=== PATIENT | female | born 1990 | race Caucasian/White ===

== ENCOUNTER 2025-02-12 19:16 | Emergency (ER) | payer MEDICAID, SELFPAY ==
[2025-02-12 19:17] VITALS: BP 103/63; PULSE 63; RESP 16; TEMP 36.8; O2SAT 97; BMI 32.0
--- NOTE | 2025-02-12 19:46 | CTR_ITS ---
PROCEDURE INFORMATION: Exam: CT Abdomen And Pelvis With Contrast Exam date and time: 02/12/2025 8:43 PM Age: 34 years old Clinical indication: Abdominal pain; Localized; Right lower quadrant (rlq); Prior surgery; Surgery date: 6+ months; Surgery type: Tubal; C/O rlq pain TECHNIQUE: Imaging protocol: Computed tomography of the abdomen and pelvis with contrast. Radiation optimization: All CT scans at this facility use at least one of these dose optimization techniques: automated exposure control; mA and/or kV adjustment per patient size (includes targeted exams where dose is matched to clinical indication); or iterative reconstruction. Contrast material: OMNI 350; Contrast volume: 100 ml; Contrast route: INTRAVENOUS (IV); COMPARISON: No relevant prior studies available. RADIATION DOSE METRICS: Total DLP (mGy-cm): 606.53 FINDINGS: Liver: Normal. No mass. Gallbladder and biliary ducts: Normal. No calcified stones. No ductal dilation. Pancreas: Normal. No ductal dilation. Spleen: Normal. No splenomegaly. Adrenal glands: Normal. No mass. Kidneys and ureters: Renal cortical and parapelvic cysts. No hydronephrosis. No nephrolithiasis. Focus of calcification is identified in the region of the right ureteropelvic junction seen on image 77 of series 3. But this is felt to be a pelvic phleboliths. Stomach and bowel: Unremarkable. No obstruction. No mucosal thickening. Appendix: No evidence of appendicitis. Intraperitoneal space: Unremarkable. No free air. No significant fluid collection. Vasculature: Unremarkable. No abdominal aortic aneurysm. Lymph nodes: Unremarkable. No enlarged lymph nodes. Urinary bladder: Unremarkable as visualized. Reproductive: Unremarkable as visualized. Bones/joints: Unremarkable. No acute fracture. Soft tissues: Unremarkable. CT/CT abdomen pelvis w con* [id number] IMPRESSION: No acute findings. No hydronephrosis. Focus of calcification is identified in the region of the right ureteropelvic junction seen on image 77 of series 3. But this is felt to be a pelvic phleboliths. If this was a calculus that was causing obstruction there would be some prominence hydroureter which is not present. COMMENTS: Consistent with the [place] [employer]'s Incidental Findings Committee white paper (J Am Flavia Radiol 2018): Any incidental renal lesion less than 1 cm or classified as too small to characterize, or any incidental cystic renal lesion characterized as simple-appearing, is likely benign. No follow-up imaging is recommended for these lesions per consensus recommendations based on imaging criteria.
--- NOTE | 2025-02-12 19:53 | ED_ITS ---
HPI - Abdominal Pain 2 General: Chief Complaint: Abdominal Pain Stated Complaint: ABD PAIN Time Seen by Provider: 02/12/25 19:19 History of Present Illness: 34-year-old female with pain that starte d to her low back this morning, this afternoon it began to localize to her right lower quadrant. This was around 430. Pain is intense at this point. It is sharp. Patient has had intermittent blood in her stools for the past couple of months. She has not seen anyone about this. Only belly surgery history is tubal ligation and ablation. She does not believe she is . No fever. No vomiting. No diarrhea. Related Data Previous Rx's ?Medication ?Instructions ?Recorded hydrocodone 5 mg-acetaminophen 325 1 tab PO Q8H PRN pa in #7 tabs 02/12/25 mg tablet ketorolac 10 mg tablet 10 mg PO TID PRN pain #10 ta bs 02/12/25 Allergies Allergy/AdvReac Type Severity Reaction Status Date / Time cefaclor (From [facility]) Allergy Unknown Verified 02/12/25 19:24 Physical Exam 2 Const: COMMON NORMALS: no acute distress GENERAL APPEARANCE: cooperative; not ill appearing and not frail appearing HENMT: COMMON NORMALS: normocephalic, atraumatic and Normal external nose present HEAD & SCALP: normocephalic and atraumatic FACE & SINUS: normal facial exam and face symmetric NOSE: Normal external nose present Eye: COMMON NORMALS: Equal, round and reactive pupils present and EOMs intact bilaterally PUPIL: Yes Equal, round and reactive pupils present Neck/C-Spine: GENERAL: Yes trachea midline Chest: CHEST: Yes Symmetrical chest wall rise Resp: COMMON NORMALS: normal respiratory effort, No retractions, No use of accessory muscles and clear to auscultation bilaterally AUSCULTATION: clear to auscultation bilaterally Cardio: COMMON NORMALS: regular rate and regular rhythm RATE: regular rate RHYTHM: regular rhythm GI: COMMON NORMALS: Normal to inspection, nondistended, normoactive bowel sounds present PALPATION: Yes Tenderness to palpation present (GI) Details: RLQ and Yes Guarding due to palpation present (GI) Extremity: COMMON NORMALS: no pedal edema Neuro: SOHAN COMA SCALE: document GCS findings Sohan coma scale eye opening: Spontaneous [place] coma scale verbal response: Orientated Sohan coma scale motor response: Obey commands [place] coma scale total score: 15 S ENSORY EXAM: Yes extremities (intact) Psych: COMMON NORMALS: speech normal SPEECH: Yes normal speech Skin: COMMON NORMALS: no rashes or lesions noted GENERAL SKIN EXAM: no rashes or lesions noted Course 2 Vital Signs: Vital signs: Vital Signs Temperature 98.2 F 02/12/25 19:17 Pulse Rate 58 L 02/12/25 22:33 Respiratory Rate 16 02/12/25 22:33 Blood Pressure 100/65 02/12/25 22:33 Pulse Oximetry 98 02/12/25 22:33 Oxygen Delivery Me thod Room Air 02/12/25 22:00 MDM - Abdominal Pain Medical Decision Making Right lower quadrant tenderness. No fever. Blood pressure mildly soft. No tachycardia. White blood cell count is 12. CRP is only 12. Urinalysis is negative. CT shows no acute findings. Will discharge. The patient does not have PCP follow-up. Case management has been consulted to arrange this. Return for worsening symptoms despite treatment. Lab Data 02/12/25 19:55 02/12/25 19:55 Labs/Radiology: Radiology Impressions Abdomen/Pelvis CT 02/12/25 19:46 IMPRESSION: No acute findings. No hydronephrosis. Focus of calcification is identified in the region of the right ureteropelvic junction seen on image 77 of series 3. But this is felt to be a pelvic phleboliths. If this was a calculus that was causing obstruction there would be some prominence hydroureter which is not present. COMMENTS: Consistent with the [place] [employer]'s Incidental Findings Committee white paper (J Am Flavia Radiol 2018): Any incidental renal lesion less than 1 cm or classified as too small to characterize, or any incidental cystic renal lesion characterized as simple-appearing, is likely benign. No follow-up imaging is recommended for these lesions per consensus recommendations based on imaging criteria. Laboratory Results WBC 11.81 10^3/uL (3.29-11.43) H 02/12/25 19:55 RBC 4.73 10^6/uL (3.85-5.65) 02/12/25 19:55 Hgb 14.00 g/dL (11.27-16.99) 02/12/25 19:55 Hct 41.8 % (36-47) 02/12/25 19:55 MCV 88.4 fl (85-98) 02/12/25 19:55 MCH 29.6 pg (27-33) 02/12/25 19:55 MCHC 33.5 g/dL (30-55) 02/12/25 19:55 RDW 12.2 % (12.1-15.1) 02/12/25 19:55 Plt Count 299 10^3/cmm (157-399) 02/12/25 19:55 MPV 10.2 fL (7.4-10.4) 02/12/25 19:55 Neut % (Auto) 64.3 % 02/12/25 19:55 Lymph % (Auto) 25.4 % 02/12/25 19:55 [place] % (Auto) 7.9 % 02/12/25 19:55 Eos % (Auto) 1.4 % 02/12/25 19:55 Baso % (Auto) 0.7 % 02/12/25 19:55 Neut # (Auto) 7.59 10^3/uL (1.8-7.7) 02/12/25 19:55 Lymph # (Auto) 3.0 10^3/uL (0.8-4.8) 02/12/25 19:55 [place] # (Auto) 0.9 10^3/uL (0.2-0.9) 02/12/25 19:55 Eos # (Auto) 0.2 10^3/uL (0.0-0.8) 02/12/25 19:55 Baso # (Auto) 0.1 10^3/uL (0.0-0.1) 02/12/25 19:55 Nucleated RBC % (auto) 0 % 02/12/25 19:55 Nucleated RBCs # 0.0 /100WBC 02/12/25 19:55 Sodium 140 mmol/L (136-145) 02/12/25 19:55 Potassium 3.5 mmol/L (3.5-5.1) 02/12/25 19:55 Chloride 105 mmol/L (98-107) 02/12/25 19:55 Carbon Dioxide 23 mmol/L (22-29) 02/12/25 19:55 Anion Gap 15.5 (5-19) 02/12/25 19:55 BUN 6 mg/dL (6-20) 02/12/25 19:55 Creatinine 0.7 mg/dL (0.5-0.9) 02/12/25 19:55 GFR Calculation 95.2 mL/min (90-130) 02/12/25 19:55 Glucose 108 mg/dL (65-115) 02/12/25 19:55 Calculated Osmolality 288 mOsm/kg (285-295) 02/12/25 19:55 Calcium 9.3 mg/dL (8.5-10.5) 02/12/25 19:55 Total Bilirubin 0.4 mg/dL (0.15-1.2) 02/12/25 19:55 AST 14 U/L (0-32) 02/12/25 19:55 ALT 15 U/L (0-33) 02/12/25 19:55 Alkaline Phosphatase 90 U/L (35-105) 02/12/25 19:55 C-Reactive Protein 11.8 mg/L (0.0-4.9) H 02/12/25 19:55 Total Protein 7.3 g/dL (6.6-8.7) 02/12/25 19:55 Albumin 4.1 g/dL (3.5-5.2) 02/12/25 19:55 Globulin 3.2 g/dL (1.3-4.6) 02/12/25 19:55 Lipase 26 U/L (13-60) 02/12/25 19:55 HCG, Qual Negative (Negative) 02/12/25 19:55 Urine Color Yellow (Yellow) 02/12/25 21:15 Urine Appearance Clear (CLEAR) 02/12/25 21:15 Urine pH 6.5 (5-7) 02/12/25 21:15 Ur Specific [place] 1.023 (1.005-1.030) 02/12/25 21:15 Urine Protein Negative (Negative) 02/12/25 21:15 Urine Glucose (UA) Negative (Normal) 02/12/25 21:15 Urine Ketones Negative (Negative) 02/12/25 21:15 Urine Blood Negative (Negative) 02/12/25 21:15 Urine Nitrate Negative (Negative) 02/12/25 21:15 Urine Bilirubin Negative (Negative) 02/12/25 21:15 Urine Urobilinogen 1.0 mg/dL (Negative) 02/12/25 21:15 Ur Leukocyte Esterase Trace (Negative) A 02/12/25 21:15 Urine RBC 0-2 /hpf (0-2) 02/12/25 21:15 Urine WBC 6-10 /hpf (0-5) 02/12/25 21:15 Ur Squamous Epith Cells 11-20 /hpf (0-5) H 02/12/25 21:15 Amorphous Sediment Not Reportable 02/12/25 21:15 Urine Bacteria Trace /hpf (NONE) 02/12/25 21:15 Hyaline Casts 0-4 /lpf H 02/12/25 21:15 All radiology interpretation(s) finalized by discharge Discharge Plan Discharge Patient Disposition: Home Clinical Impression: Abdominal pain Condition: Stable Prescriptions: New hydrocodone-acetaminophen 5-325 mg tablet 1 tab PO Q8H PRN (Reason: pain) Qty: 7 0RF ketorolac 10 mg tablet 10 mg PO TID PRN (Reason: pain) Qty: 10 0RF Discharge Orders: Discharge ED (Routine); Ordered 02/12/25 Ordered By: Grabiel Sequeira Patient Instructions: Abdominal Pain (ED), Opioid Safety, Pain Management Activity Restrictions/Additional Instructions: Laboratory, urinalysis, and imaging did not show a cause for right lower quadrant pain this evening. He will be prescribed symptomatic treatment. Return to the emergency department for fever greater than 100 ?F, vomiting liquids or medications, worsening pain despite treatment, other concerning symptoms. Print Language: Indonesian Coding Level of Care Code ED Veterans Adviser for Shila Campos
[2025-02-12 20:05] LABS: Basophils # 0.1 10^3/uL (0.0-0.1); Basophils % 0.7 %; Eosinophils # 0.2 10^3/uL (0.0-0.8); Eosinophils % 1.4 %; Hematocrit 41.8 % (36-47); Lymphocytes % 25.4 %; Mean Corpuscular HGB Conc 33.5 g/dL (30-55); Mean Corpuscular Hemoglobin 29.6 pg (27-33); Mean Corpuscular Volume 88.4 fl (85-98); Mean Platelet Volume 10.2 fL (7.4-10.4); Monocytes # 0.9 10^3/uL (0.2-0.9); Monocytes % 7.9 %; Neutrophils # 7.59 10^3/uL (1.8-7.7); Neutrophils % 64.3 %; Nucleated Red Blood Cells % 0 %; Platelet Count 299 10^3/cmm (157-399); Red Blood Count 4.73 10^6/uL (3.85-5.65); Red Cell Distribution Width 12.2 % (12.1-15.1); White Blood Count 11.81 10^3/uL (3.29-11.43)
[2025-02-12 20:21] LABS: Alanine Aminotransferase 15 U/L (0-33); Albumin Level 4.1 g/dL (3.5-5.2); Alkaline Phosphatase 90 U/L (35-105); Anion Gap 15.5 (5-19); Aspartate Amino Transferase 14 U/L (0-32); Blood Urea Nitrogen 6 mg/dL (6-20); C Reactive Protein 11.8 mg/L (0.0-4.9); Calcium 9.3 mg/dL (8.5-10.5); Carbon Dioxide 23 mmol/L (22-29); Chloride 105 mmol/L (98-107); Globulin 3.2 g/dL (1.3-4.6); Glomerular Filtration Rate 95.2 mL/min (90-130); Glucose 108 mg/dL (65-115); Lipase 26 U/L (13-60); Osmolality Calculated 288 mOsm/kg (285-295); Potassium 3.5 mmol/L (3.5-5.1); Sodium 140 mmol/L (136-145); Total Bilirubin 0.4 mg/dL (0.15-1.2); Total Protein 7.3 g/dL (6.6-8.7)
[2025-02-12 20:22] LABS: HCG, Serum Qual Negative (Negative)
[2025-02-12 20:29] VITALS: RESP 16
[2025-02-12] MEDS: ketorolac 30 mg/mL INJ IVP (20:29)
[2025-02-12] MEDS: morphine 4 mg/mL SDV 1 mL IVP (20:29)
[2025-02-12] MEDS: ondansetron 2 mg/ML SDV 2 mL 4 MG IVP (20:30)
[2025-02-12 20:36] VITALS: BP 98/62; PULSE 78; RESP 16; O2SAT 94
[2025-02-12] MEDS: iohexol 350 mg/mL 500 mL Btl (per mL) IV (20:44)
[2025-02-12 21:24] LABS: Bilirubin Urine Negative (Negative); Blood Urine Negative (Negative); Glucose Urine UA Negative (Normal); Ketones Urine Negative (Negative); Leukocyte Esterase Urine Trace (Negative); Nitrate Urine Negative (Negative); Protein Urine Negative (Negative); Specific Gravity, Urine 1.023 (1.005-1.030); Urine Appearance Clear (CLEAR); Urine Color Yellow (Yellow); pH Urine 6.5 (5-7)
[2025-02-12 21:28] LABS: Add Urine Microscopic? YES; Bacteria Urine Trace /hpf; Hyaline Casts Urine 0-4 /lpf; RBC Urine 0-2 /hpf (0-2)
[2025-02-12 22:00] VITALS: BP 96/62; PULSE 60; RESP 16; O2SAT 98
[2025-02-12 22:33] VITALS: BP 100/65; PULSE 58; RESP 16; O2SAT 98
== END 2025-02-12 22:34 | disposition home or self-care (01) ==
PROVIDERS: Emergency Provider Emergency Medicine
DX: R10.9 Unspecified abdominal pain (principal)
CPT/HCPCS: 36415; 74177; 80053; 81001; 83690; 84703; 85025; 86140; 96374; 96375; 99285; J1885; J2270; J2405

== ENCOUNTER 2025-06-05 16:27 | Emergency (ER) | payer MEDICAID, SELFPAY ==
[2025-06-05 16:29] VITALS: BP 107/83; PULSE 70; RESP 16; TEMP 36.8; O2SAT 100; BMI 27.4
--- NOTE | 2025-06-05 16:36 | CTR_ITS ---
PROCEDURE INFORMATION: Exam: CT Abdomen And Pelvis With Contrast Exam date and time: 06/05/2025 5:44 PM Age: 35 years old Clinical indication: Abdominal pain; Generalized; Prior surgery; Surgery date: 6+ months; Surgery type: Tubal; Additional info: Diffuse abd pain TECHNIQUE: Imaging protocol: Computed tomography of the abdomen and pelvis with contrast. Radiation optimization: All CT scans at this facility use at least one of these dose optimization techniques: automated exposure control; mA and/or kV adjustment per patient size (includes targeted exams where dose is matched to clinical indication); or iterative reconstruction. Contrast material: OMNIPAQUE 350; Contrast volume: 100 ml; Contrast route: INTRAVENOUS (IV); COMPARISON: CT abdomen pelvis w con* [id number] 02/12/2025 8:43 PM RADIATION DOSE METRICS: Total DLP (mGy-cm): 581.43 FINDINGS: Liver: Falciform ligament with mild fat nonspecific although commonly benign renal cysts. Gallbladder and biliary ducts: Normal. No calcified stones. No ductal dilation. Pancreas: Normal. No ductal dilation. Spleen: Normal. No splenomegaly. Adrenal glands: Normal. No mass. Kidneys and ureters: See Liver finding. Stomach and bowel: Unremarkable. No obstruction. No mucosal thickening. Appendix: No evidence of appendicitis. Intraperitoneal space: Unremarkable. No free air. No significant fluid collection. Vasculature: Unremarkable. No abdominal aortic aneurysm. Lymph nodes: Unremarkable. No enlarged lymph nodes. Urinary bladder: Unremarkable as visualized. Reproductive: Unremarkable as visualized. Bones/joints: Unremarkable. No acute fracture. Soft tissues: Fat containing umbilical hernia. CT/CT abdomen pelvis w con* [id number] IMPRESSION: No definite acute abdominopelvic abnormality.
[2025-06-05 16:37] VITALS: BP 99/63; PULSE 88; RESP 16; O2SAT 98
--- NOTE | 2025-06-05 16:40 | ED_ITS ---
HPI - Abdominal Pain 2 General: Chief Complaint: Abdominal Pain Stated Complaint: low back pain/groin pain Time Seen by Provider: 06/05/25 16:31 Source: patient and old records reviewed Mode of arrival: EMS Limitations: no limitations History of Present Illness: Patient is a 35-year-old female present to the emergency department by ambulance for diffuse abdominal pain for the past week. States that has been constant since onset, was seen here in January for abdominal pain, states that this is similar but more severe. She notes also the sensation that she has pressure when she urinates, though has not lost the ability to control her bowel or bladder. Denies any trauma, she does note that the pain radiates into her low back. 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 She notes the feeling of nausea, no vomiting. Her nausea was improved after Zofran by ambulance. Does note some diarrhea, last normal bowel movement was earlier today. Denies any previous abdominal surgeries. Denies any fevers at home. No chest pain or shortness of breath. She is nontoxic-appearing at this time, afebrile with unremarkable vitals overall. MD elicited complaint: abdominal pain Onset (ago): week(s) Pain Consistency: constant Location: Diffuse Severity: similar to previous episodes Quality: cramping Associated Symptoms: Reports diarrhea, dysuria and nausea; Denies bloating, change in stool character, chills, constipation, fever(s), hematochezia and vomiting Related Data Previous Rx's ?Medication ?Instructions ?Recorded hydrocodone 5 mg-acetaminophen 325 1 tab PO Q8H PRN pa in #7 tabs 02/12/25 mg tablet ketorolac 10 mg tablet 10 mg PO TID PRN pain #10 ta bs 02/12/25 ondansetron 4 mg disintegrating 4 mg PO TID PRN nausea and 06/05/25 tablet vomiting #30 tabs Allergies Allergy/AdvReac Type Severity Reaction Status Date / Time cefaclor (From [facility]) Allergy Unknown Verified 02/12/25 19:24 Review of Systems 2 General: Reports: 10 or more systems reviewed and unremarkable except in HPI and below Const: Denies: fever(s), chills, change in appetite, change in weight or diaphoresis ENMT: Denies: throat pain or hoarseness Card: Denies: chest pain, palpitations or lightheadedness Resp: Denies: dyspnea, productive cough or wheezing GI: Reports: abdominal pain, nausea and diarrhea; Denies: vomiting, constipation, bloating, change in stool character or hematochezia : Reports: dysuria; Denies: flank pain, difficulty voiding, urinary frequency or urinary urgency Musc: Denies: neck pain or back pain Skin/Breast: Denies: rash or new lesions Neuro: Denies: headache(s) or dizziness Physical Exam 2 Const: COMMON NORMALS: no acute distress, average body habitus, patient oriented x3, no limitations, healthy appearing, alert and well nourished G ENERAL APPEARANCE: cooperative and comfortable ORIENTATION/CONSCIOUSNESS: Yes awake Neck/C-Spine: COMMON NORMALS: full ROM, supple and no meningeal signs Resp: COMMON NORMALS: normal respiratory effort, No retractions, No use of accessory muscles and clear to auscultation bilaterally AUSCULTATION: clear to auscultation bilaterally, no crackles, no rales, no rhonchi and no wheezes Cardio: COMMON NORMALS: regular rate, regular rhythm, No gallops present (Cardio), No clicks present (Cardio), No murmurs present (Cardio), No rub (Cardio) and Peripheral pulses 2+ throughout RATE: regular rate RHYTHM: r egular rhythm PERIPHERAL PULSES: Peripheral pulses 2+ throughout GI: COMMON NORMALS: Normal to inspection, nondistended, normoactive bowel sounds present, Soft to palpation, No hepatosplenomegaly present and no masses AUSCULTATION: Yes normoactive bowel sounds PALPATION: Yes Soft to palpation, Yes Tenderness to palpation present (GI) (Diffuse, to light palpation), Yes Guarding due to palpation present (GI) (Diffuse voluntary guarding), No Rigid due to palpation and Yes No hepatosplenomegaly present RECTAL EXAM: deferred Extremity: COMMON NORMALS: normal to inspection and full ROM Neuro: COMMON NORMALS: patient oriented x3, moves all extremities, no focal motor deficits and no sensory deficits noted SENSORIUM/ORIENTATION: Yes alert MENINGEAL SIGNS: Yes no meningeal signs Psych: COMMON NORMALS: mental status grossly normal, cooperative and speech normal SPEECH: Yes normal speech Skin: COMMON NORMALS: no rashes or lesions noted GENERAL SKIN EXAM: no rashes or lesions noted Course 2 Vital Signs: Vital signs: Vital Signs Temperature 98.2 F 06/05/25 16:29 Pulse Rate 88 06/05/25 18:07 Respiratory Rate 16 06/05/25 18:07 Blood Pressure 97/66 06/05/25 18:07 Pulse Oximetry 98 06/05/25 18:07 Oxygen Delivery Me thod Room Air 06/05/25 18:07 MDM - Abdominal Pain Medical Decision Making Patient presented by ambulance for abdominal pain for the past week, has been constant and diffuse. Associated diarrhea and nausea. Vital stable on arrival, afebrile. Lab work was unremarkable, urinalysis does not show any infection. Abdomen/pelvis CT shows no acute findings. Suspect gastroenteritis. No further workup necessary in the ED at this time, she states she feels much better after Zofran from EMS and is ready to go home. Lab Data 06/05/25 16:48 06/05/25 16:48 Labs/Radiology: Radiology Impressions Abdomen/Pelvis CT 06/05/25 16:36 IMPRESSION: No definite acute abdominopelvic abnormality. Laboratory Results WBC 14.15 10^3/uL (3.29-11.43) H 06/05/25 16:48 RBC 4.88 10^6/uL (3.85-5.65) 06/05/25 16:48 Hgb 14.60 g/dL (11.27-16.99) 06/05/25 16:48 Hct 44.2 % (36-47) 06/05/25 16:48 MCV 90.6 fl (85-98) 06/05/25 16:48 MCH 29.9 pg (27-33) 06/05/25 16:48 MCHC 33.0 g/dL (30-55) 06/05/25 16:48 RDW 12.5 % (12.1-15.1) 06/05/25 16:48 Plt Count 321 10^3/cmm (157-399) 06/05/25 16:48 MPV 9.5 fL (7.4-10.4) 06/05/25 16:48 Neut % (Auto) 70.3 % 06/05/25 16:48 Lymph % (Auto) 20.8 % 06/05/25 16:48 [place] % (Auto) 7.1 % 06/05/25 16:48 Eos % (Auto) 1.0 % 06/05/25 16:48 Baso % (Auto) 0.4 % 06/05/25 16:48 Neut # (Auto) 9.95 10^3/uL (1.8-7.7) H 06/05/25 16:48 Lymph # (Auto) 2.9 10^3/uL (0.8-4.8) 06/05/25 16:48 [place] # (Auto) 1.0 10^3/uL (0.2-0.9) H 06/05/25 16:48 Eos # (Auto) 0.1 10^3/uL (0.0-0.8) 06/05/25 16:48 Baso # (Auto) 0.1 10^3/uL (0.0-0.1) 06/05/25 16:48 Nucleated RBC % (auto) 0 % 06/05/25 16:48 Nucleated RBCs # 0.0 /100WBC 06/05/25 16:48 Sodium 142 mmol/L (136-145) 06/05/25 16:48 Potassium 3.7 mmol/L (3.5-5.1) 06/05/25 16:48 Chloride 107 mmol/L (98-107) 06/05/25 16:48 Carbon Dioxide 25 mmol/L (22-29) 06/05/25 16:48 Anion Gap 13.7 (5-19) 06/05/25 16:48 BUN 7 mg/dL (6-20) 06/05/25 16:48 Creatinine 0.7 mg/dL (0.5-0.9) 06/05/25 16:48 GFR Calculation 94.7 mL/min (90-130) 06/05/25 16:48 Glucose 107 mg/dL (65-115) 06/05/25 16:48 Calculated Osmolality 292 mOsm/kg (285-295) 06/05/25 16:48 Calcium 9.2 mg/dL (8.5-10.5) 06/05/25 16:48 Total Bilirubin 0.4 mg/dL (0.15-1.2) 06/05/25 16:48 AST 14 U/L (0-32) 06/05/25 16:48 ALT 12 U/L (0-33) 06/05/25 16:48 Alkaline Phosphatase 98 U/L (35-105) 06/05/25 16:48 Total Protein 7.5 g/dL (6.6-8.7) 06/05/25 16:48 Albumin 4.3 g/dL (3.5-5.2) 06/05/25 16:48 Globulin 3.2 g/dL (1.3-4.6) 06/05/25 16:48 Lipase 29 U/L (13-60) 06/05/25 16:48 HCG, Qual Negative (Negative) 06/05/25 16:48 Urine Color Yellow (Yellow) 06/05/25 16:52 Urine Appearance Clear (CLEAR) 06/05/25 16:52 Urine pH 7.0 (5-7) 06/05/25 16:52 Ur Specific [place] 1.006 (1.005-1.030) 06/05/25 16:52 Urine Protein Negative (Negative) 06/05/25 16:52 Urine Glucose (UA) Negative (Normal) 06/05/25 16:52 Urine Ketones Negative (Negative) 06/05/25 16:52 Urine Blood Negative (Negative) 06/05/25 16:52 Urine Nitrate Negative (Negative) 06/05/25 16:52 Urine Bilirubin Negative (Negative) 06/05/25 16:52 Urine Urobilinogen 0.2 mg/dL (Negative) 06/05/25 16:52 Ur Leukocyte Esterase Negative (Negative) 06/05/25 16:52 Amorphous Sediment Not Reportable 06/05/25 16:52 All radiology interpretation(s) finalized by discharge Discharge Plan Discharge Patient Disposition: Home Clinical Impression: Gastroenteritis Condition: Stable Prescriptions: New ondansetron 4 mg tablet,disintegrating 4 mg PO TID PRN (Reason: nausea and vomiting) Qty: 30 0RF No Action hydrocodone-acetaminophen 5-325 mg tablet 1 tab PO Q8H PRN (Reason: pain) Qty: 7 0RF ketorolac 10 mg tablet 10 mg PO TID PRN (Reason: pain) Qty: 10 0RF Discharge Orders: Discharge ED (Routine); Ordered 06/05/25 Ordered By: Diego Aviles Patient Instructions: Patient Portal & Alexi Instructions Activity Restrictions/Additional Instructions: Gastroenteritis Discharge Instructions You have been diagnosed with gastroenteritis (stomach flu). This is usually caused by a virus and gets better on its own. Your lab tests and scans are normal. What to do at home: - Stay hydrated: Drink plenty of fluids like water, clear broths, oral rehydration solutions (such as Pedialyte), or sports drinks. Small, frequent sips are best if you feel nauseated. Avoid alcohol and caffeine. - Eat [id number] foods: When you feel ready, start with bland foods like bananas, rice, applesauce, toast, crackers, or plain potatoes. Avoid dairy products until you feel better, as your stomach may not handle them well right now. - Rest: Get plenty of rest to help your body recover. Medicines: - You may use [id number] medicines like loperamide (Imodium) for watery diarrhea if you do not have blood in your stool or a fever. Do not use these medicines if you have bloody diarrhea or high fever. - Avoid antibiotics unless specifically prescribed, as most cases are viral and do not need them. Prevent spreading germs: - Wash your hands well with soap and water, especially after using the bathroom and before eating or preparing food. - Do not prepare food for others until you are symptom-free. When to seek medical care: - Signs of dehydration: very dry mouth, little or no urine, dizziness, or feeling very weak. - High fever (over 101?F), blood in your stool, severe abdominal pain, or vomiting that won?t stop. - Symptoms lasting more than 7 days or getting worse. Follow-up: - Most people recover within a few days. If you do not improve or your symptoms worsen, contact your healthcare provider. If you work in food production associate, healthcare, or child protection specialist, ask your doctor when it is safe to return to work. Take care and get well soon! Print Language: Salvadorean Coding Level of Care Code ED Biological Aide for Shila Campos
--- OUTSIDE RECORDS SUMMARY | 2025-06-05 16:41 | XMS_ITS | Clinical Summary ---
Author Organization [facility] iew Address [address] [place] [address] Phone Care Team Providers Care Construction Electrician Name Role Phone Unavailable Primary Care Provider Unavailabl e Encounters Date Type Department Care Team Description 04/12/2025 External Device Data ST[facility] ABSTRACTION Provider, Abstract 04/11/2025 External Device Data [facility] ABSTRACTION Provider, Abstract 03/08/2025 External Device Data [facility] ABSTRACTION Provider, Abstract 03/07/2025 External Device Data STL ABSTRACTION Provider, Abstract from Last 3 Months Social History Tobacco Use Types Packs/Day Years Used Date Smoking Tobacco: Never Assessed Comments Unknown Sex and Gender Information Value Date Recorded Sex Assigned at Not on file Legal Sex Female 12:33 PM CDT Gender Identity Not on file Sexual Orientation Not on file Plan of Treatment Health Maintenance Due Date Last Done Comments Pre-Diabetes and Diabetes Screening 1989 DTAP/TDAP/TD VACCINES (1 - Tdap) 2008 HEPATITIS B VACCINES (1 of 3 - 19+ 3-dose series) 03/24 HPV/Cotest (21-29) 2010 HPV VACCINES (1 - 3-dose SCDM series) 2016 CERVICAL CANCER SCREENING 2019 HPV/Cotest (30-65) 2019 PAP SMEAR 2019 INFLUENZA VACCINE (#1) 2025 Insurance [place]ICAID [place]
[2025-06-05 16:58] LABS: Hematocrit 44.2 % (36-47); Hemoglobin 14.60 g/dL (11.27-16.99); Mean Corpuscular HGB Conc 33.0 g/dL (30-55); Mean Corpuscular Hemoglobin 29.9 pg (27-33); Mean Corpuscular Volume 90.6 fl (85-98); Nucleated Red Blood Cells % 0 %; Platelet Count 321 10^3/cmm (157-399); Red Blood Count 4.88 10^6/uL (3.85-5.65); White Blood Count 14.15 10^3/uL (3.29-11.43)
[2025-06-05 17:18] LABS: Add Urine Microscopic? NO
[2025-06-05 17:20] LABS: HCG, Serum Qual Negative (Negative)
[2025-06-05 17:22] LABS: Glucose Urine UA Negative (Normal); Nitrate Urine Negative (Negative); Specific Gravity, Urine 1.006 (1.005-1.030)
[2025-06-05] MEDS: iohexol 350 mg/mL 500 mL Btl (per mL) IV (17:47)
[2025-06-05 17:48] LABS: Alanine Aminotransferase 12 U/L (0-33); Albumin Level 4.3 g/dL (3.5-5.2); Alkaline Phosphatase 98 U/L (35-105); Anion Gap 13.7 (5-19); Aspartate Amino Transferase 14 U/L (0-32); Blood Urea Nitrogen 7 mg/dL (6-20); Calcium 9.2 mg/dL (8.5-10.5); Carbon Dioxide 25 mmol/L (22-29); Chloride 107 mmol/L (98-107); Creatinine Clr Calc Pharmacy 100.4596; Globulin 3.2 g/dL (1.3-4.6); Glucose 107 mg/dL (65-115); Lipase 29 U/L (13-60); Osmolality Calculated 292 mOsm/kg (285-295); Potassium 3.7 mmol/L (3.5-5.1); Sodium 142 mmol/L (136-145); Total Protein 7.5 g/dL (6.6-8.7)
[2025-06-05 17:51] LABS: Charge for UA Resulting for Rev
[2025-06-05 18:07] VITALS: BP 97/66; PULSE 88; RESP 16; O2SAT 98
[2025-06-05 19:15] VITALS: BP 99/64; PULSE 73; O2SAT 99
== END 2025-06-05 19:18 | disposition home or self-care (01) ==
PROVIDERS: Emergency Provider Physician Assistant
DX: K52.9 Noninfective gastroenteritis and colitis, unspecified (principal)
CPT/HCPCS: 74177; 80053; 81003; 83690; 84703; 85025; 99285